=== PATIENT | male | born 1995 | race African-American/Black ===

== ENCOUNTER 2018-03-08 11:53 | Emergency (ER) | payer OTHER ==
[2018-03-08] MEDS ORDERED: IBUPROFEN 800 MG TABLET PO ONE (12:18)
--- NOTE | 2018-03-08 12:19 | ER Document Report ---
ED Hand/Wrist Injury - General Chief Complaint: Hand Injury Stated Complaint: HAND INJURY Time Seen by Provider: 03/08/18 12:10 Mode of Arrival: Ambulatory Information source: Patient Notes: 22-year-old male presents to ED for complaint of pain to his right hand and ring finger after he was hit by a basketball 2 days ago and the pain is continued with swelling. - HPI Injury to: Hand - Right Onset: Other - 2 days ago Where: Outdoors Timing: Still present Quality of pain: Achy, Pressure Severity: Moderate Pain Level: 3 Context: Other - Hit hand with basketball 2 days ago pain and swelling to the hand - Related Data Allergies/Adverse Reactions: No Known Allergies Allergy (Unverified 10/30/11 10:06) Past Medical History - General Information source: Patient - Social History Smoking Status: Never Smoker Cigarette use (# per day): No Chew tobacco use (# tins/day): No Smoking Education Provided: No Frequency of alcohol use: None Drug Abuse: None Lives with: Family Family History: Reviewed & Not Pertinent Patient has suicidal ideation: No Patient has homicidal ideation: No - Past Medical History Cardiac Medical History: Reports: None Pulmonary Medical History: Reports: Hx Asthma EENT Medical History: Reports: None Neurological Medical History: Reports: None Endocrine Medical History: Reports: None Renal/ Medical History: Reports: None Malignancy Medical History: Reports None GI Medical History: Reports: None Musculoskeltal Medical History: Reports Hx Musculoskeletal Trauma Skin Medical History: Reports None Psychiatric Medical History: Reports: None Traumatic Medical History: Reports: Hx Fractures - 03/08/2018 fourth metacarpal right Infectious Medical History: Reports: None Past Surgical History: Reports: Hx Adenoidectomy, Hx Tonsillectomy - Immunizations Immunizations up to date: Yes Review of Systems - Review of Systems Constitutional: No symptoms reported EENT: No symptoms reported Cardiovascular: No symptoms reported Respiratory: No symptoms reported Gastrointestinal: No symptoms reported Genitourinary: No symptoms reported Male Genitourinary: No symptoms reported Musculoskeletal: Other - Right hand pain and swelling Skin: No symptoms reported Hematologic/Lymphatic: No symptoms reported Neurological/Psychological: No symptoms reported -: Yes All other systems reviewed and negative Physical Exam - Vital signs Vitals: Temp Pulse Resp BP Pulse Ox 98.2 F 59 L 18 125/78 95 03/08/18 12:00 03/08/18 12:00 03/08/18 12:00 03/08/18 12:00 03/08/18 12:00 Interpretation: Normal - General General appearance: Appears well, Alert - HEENT Head: Normocephalic, Atraumatic Eyes: Normal Pupils: PERRL - Respiratory Respiratory status: No respiratory distress Chest status: Nontender Breath sounds: Normal Chest palpation: Normal - Cardiovascular Rhythm: Regular Heart sounds: Normal auscultation Murmur: No - Abdominal Inspection: Normal Distension: No distension Bowel sounds: Normal Tenderness: Nontender Organomegaly: No organomegaly - Back Back: Normal, Nontender - Extremities General upper extremity: Normal color, Normal temperature General lower extremity: Normal inspection, Nontender, Normal color, Normal ROM , Normal temperature, Normal weight bearing. No: Yolette's sign Wrist: No: Limited ROM - Due to pain Hand: Tender, Ecchymosis, No evidence of human bite, No evidence of FB, Swelling. No: Abrasion, Deformity, Dislocation, Instability, Laceration, Nail injury, Tendon deficit - Neurological Neuro grossly intact: Yes Cognition: Normal Orientation: AAOx4 Serjio Coma Scale Eye Opening: Spontaneous [place] Coma Scale Verbal: Oriented [place] Coma Scale Motor: Obeys Commands [place] Coma Scale Total: 15 Speech: Normal Motor strength normal: LUE, RUE, LLE, RLE Sensory: Normal - Psychological Associated symptoms: Normal affect, Normal mood - Skin Skin Temperature: Warm Skin Moisture: Dry Skin Color: Normal Course - Re-evaluation Re-evalutation: 03/08/18 13:39 X-ray results discussed with patient and written report of x-ray given to patient to follow-up with orthopedics. Patient was placed in a boxer splint. Patient was instructed to elevate ice and to keep the splint on until he follows up with orthopedics. Patient was prescribed a small prescription of [place]. - Vital Signs Vital signs: Temp Pulse Resp BP Pulse Ox 98.5 F 57 L 18 130/84 H 96 03/08/18 14:08 03/08/18 14:08 03/08/18 14:08 03/08/18 14:08 03/08/18 14:08 - Diagnostic Test Radiology reviewed: Image reviewed, Reports reviewed Procedures - Immobilization Right Hand Time completed: 14:05 Immobilizer type: Sling, Other - Boxer splint Performed by: PCT Post-Proc Neuro Vasc Exam: Normal Alignment checked and good: Yes Discharge - Discharge Clinical Impression: 4th metacarpal extra articular fracture spira HTN (hypertension) Qualifiers: Hypertension type: unspecified Qualified Code(s): I10 - Essential (primary) hypertension Condition: Stable Disposition: HOME, SELF-CARE Additional Instructions: Fractured Metacarpal You have broken a metacarpal bone in the hand. The fracture is usually caused by hitting the hand against a hard surface, but can also be caused by jamming a finger. At first the injury should be rested, elevated, and ice packed. The usual treatment is splinting for four to six weeks. For some patients, a cast is preferable. The physician will advise you. It's important to avoid any twisting or jamming of the fingers while the fracture is healing. Force on the fingers can make the fracture move. Usually , one or two fingers are included in the splint or cast. Sometimes fingers are taped instead -- in this case, extra caution to prevent a twisting of the fingers is necessary. Call the doctor or come back if swelling or pain become severe, if numbness develops, or if you suspect you may have disturbed the fracture. SPLINT PRECAUTIONS: A splint has been placed. This will protect the area while healing begins. Your problem does NOT normally require a cast. It MUST, however, be held still! Keep the splint on ALL THE TIME until instructed to remove it by the doctor. As you begin to use the area, be careful. You shouldn't do anything which causes discomfort -- you may disturb the injury even with the splint in place. After the initial period of rest and elevation, if splint does not prevent pain when you move, come back. You may require placement of a different splint , or a cast. If there is unexpected severe pain, or numbness, discoloration, or swelling beyond the splint, you should return at once. If you feel that the splint has broken or become loose, come back. Sling to be Used You are to use a sling. This is to rest the area, and to prevent it from hanging downward. Use this sling for at least 48 hours (or longer if so instructed by the doctor). Some types of splints will break if not supported by the sling, so the sling must be used as long as the splint. Ice can be placed inside the sling over the injured area. Once you remove the sling, you should not encounter pain when you use the arm and hand. If you do feel pain beneath the cast or splint, you must continue use of the sling. ICE & ELEVATION: Apply ice packs frequently against the painful area. Many different schedules are recommended, such as "20 minutes on, 20 minutes off" or "one hour ice, two hours rest." If you need to work, you may need to go longer between ice treatments. You should plan to have the area ice packed AT LEAST one- fourth of the time. The ice should be applied over the wrap, tape, or splint, or over a layer of cloth -- not directly against the skin. Some ice bags have a built-in cloth and can be put directly on the skin. Your injured part should be elevated as much as possible over the next 48 hours. Try to keep the injury above the level of the heart. Avoid use of the injured area. Elevation and rest will decrease the swelling. USE OF [id number] IBUPROFEN: Ibuprofen (Advil, Nuprin, Medipren, Motrin IB) is a medication for fever and pain control. In addition, it has anti- inflammatory effects which may be beneficial, especially in the treatment of injuries. It's best to take ibuprofen with food. Persons with ulcer disease or allergy to aspirin should notify their physician of this before taking ibuprofen. Ibuprofen can be given every four to six hours, for a total of four doses daily. Age Pain or fever dose Antiinflammatory dose 6-8 yr 200 mg (1 tab) 200 mg (1 tab) 9-11 yr 200 mg (1 tab) 200-400 mg (1-2 tab) 11-14 yr 200-400 mg (1-2 tab) 400 mg (2 tab) 15-adult 400 mg (2 tab) 600 mg (3 tab) ORAL NARCOTIC MEDICATION: You have been given a prescription for pain control. This medication is a narcotic. It's best taken with food, as nausea can result if taken on an empty stomach. Don't operate machinery or drive within six hours of taking this medication. Do not combine this medicine with alcohol, or with any medication which can cause sedation (such as cold tablets or sleeping pills) unless you get permission from the physician. Narcotics tend to cause constipation. If possible, drink plenty of fluids and eat a diet high in fiber and fruits. Please be aware that prescription narcotics also have the potential for abuse. People become addicted to these medications because of the general sense of wellbeing that they induce. This feeling along with a significant reduction in tension, anxiety, and aggression provides a stimulating seductive quality to these drugs. Once your pain is under control, we encourage you to discard your unused narcotics. FOLLOW-UP CARE: If you have been referred to a physician for follow-up care, call the physician s office for an appointment as you were instructed or within the next two days. If you experience worsening or a significant change in your symptoms, notify the physician immediately or return to the Emergency Department at any time for re-evaluation. Prescriptions: Hydrocodone/Acetaminophen [[place] 5-325 mg Tablet] 1 tab PO Q6HP PRN #14 tablet PRN Reason: Forms: Return to Work, Elevated Blood Pressure Referrals: EDITA BENITES MD [ACTIVE STAFF] - Follow up as needed
--- NOTE | 2018-03-08 13:18 | RADIOLOGY REPORT (SQ) ---
EXAM DESCRIPTION: HAND RIGHT 3 VIEWS COMPLETED DATE/TIME: 03/08/2018 12:38 pm REASON FOR STUDY: injured hit by ball COMPARISON: None. EXAM PARAMETERS: NUMBER OF VIEWS: Three views. TECHNIQUE: AP, lateral and oblique radiographic images acquired of the right hand. LIMITATIONS: None. FINDINGS: MINERALIZATION: Normal. BONES: Acute spiral nondisplaced nonangulated extra-articular fracture mid shaft right 4th metacarpal . JOINTS: No effusions. SOFT TISSUES: Dorsal hand soft tissue swelling. No foreign body. OTHER: No other significant finding. IMPRESSION: Acute spiral nondisplaced nonangulated extra-articular fracture mid shaft right 4th meta carpal TECHNICAL DOCUMENTATION: JOB ID: [id number] [employer]- All Rights Reserved Reading location - IP/workstation name: [email or web address]
[2018-03-08 14:08] VITALS: BP 130/84
== END 2018-03-08 14:08 | disposition home or self-care (01) ==
LOC: ER 11:53
DX: S62.354A Nondisplaced fracture of shaft of fourth metacarpal bone, right hand, initial encounter for closed fracture (principal); M79.641 Pain in right hand; M79.644 Pain in right finger(s); W21.05XA Struck by basketball, initial encounter; J45.909 Unspecified asthma, uncomplicated; I10 Essential (primary) hypertension
CPT/HCPCS: 99283

== ENCOUNTER 2018-08-31 12:23 | Emergency (ER) | payer SELFPAY ==
[2018-08-31] MEDS ORDERED: ONDANSETRON 4 MG TAB.RAPDIS PO ONE (13:24)
[2018-08-31] MEDS ORDERED: LANSOPRAZOLE 30 MG TAB.RAP.DR PO ONE (13:24)
[2018-08-31 14:12] LABS: HEMATOCRIT 47.3 % (37.9-51.0); HEMOGLOBIN 16.4 g/dL (13.5-17.0); MEAN CORPUSCULAR HEMOGLOBIN 28.8 pg (27.0-33.4); MEAN CORPUSCULAR HGB CONC 34.5 g/dL (32.0-36.0); MEAN CORPUSCULAR VOLUME 83 fl (80-97); PLATELET COUNT 345 10^3/uL (150-450); RED BLOOD COUNT 5.68 10^6/uL (4.35-5.55); RED CELL DISTRIBUTION WIDTH 13.1 % (11.5-14.0); WHITE BLOOD COUNT 5.1 10^3/uL (4.0-10.5)
[2018-08-31 14:32] LABS: BLOOD UREA NITROGEN 14 mg/dL (7-20); CALCIUM 10.3 mg/dL (8.4-10.2); GLUCOSE 113 mg/dL (75-110)
[2018-08-31 14:33] LABS: ALANINE AMINOTRANSFERASE 50 U/L (21-72); ALBUMIN 5.2 g/dL (3.5-5.0); ALKALINE PHOSPHATASE 61 U/L (38-126); ANION GAP 16 (5-19); ASPARTATE AMINO TRANSFERASE 24 U/L (17-59); BILIRUBIN,TOTAL 1.5 mg/dL (0.2-1.3); CARBON DIOXIDE 28 mmol/L (22-30); CHLORIDE 100 mmol/L (98-107); LIPASE 45.1 U/L (23-300); POTASSIUM 4.8 mmol/L (3.6-5.0); SODIUM 143.9 mmol/L (137-145); TOTAL PROTEIN 8.5 g/dL (6.3-8.2)
--- NOTE | 2018-08-31 14:49 | ER Document Report ---
ED General - General Chief Complaint: Nausea/Vomiting Stated Complaint: VOMITING Time Seen by Provider: 08/31/18 13:18 - HPI Patient complains to provider of: Nausea vomiting Notes: Patient coming in for nausea vomiting slight diarrhea. Patient states was drinking vodka states only 2 shots last night woke up this morning following up of black liquid material. Patient concerned that this was blood. Patient otherwise states some epigastric abdominal pain. Denies any fevers chills denies any sick contacts. Patient states only drinks intermittently on the weekends. No other past medical history. Patient resting company no signs of obvious distress - Related Data Allergies/Adverse Reactions: No Known Allergies Allergy (Unverified 10/30/11 10:06) Past Medical History - Social History Smoking Status: Current Some Day Smoker Frequency of alcohol use: Social Drug Abuse: Marijuana Family History: Reviewed & Not Pertinent Patient has suicidal ideation: No Patient has homicidal ideation: No Pulmonary Medical History: Reports: Hx Asthma Renal/ Medical History: Denies: Hx Peritoneal Dialysis Musculoskeletal Medical History: Reports Hx Musculoskeletal Trauma Traumatic Medical History: Reports: Hx Fractures - 03/08/2018 fourth metacarpal right Past Surgical History: Reports: Hx Adenoidectomy, Hx Tonsillectomy - Immunizations Immunizations up to date: Yes Review of Systems - Review of Systems Constitutional: No symptoms reported EENT: No symptoms reported Cardiovascular: No symptoms reported Respiratory: No symptoms reported Gastrointestinal: Diarrhea, Nausea, Vomiting Genitourinary: No symptoms reported Male Genitourinary: No symptoms reported Musculoskeletal: No symptoms reported Skin: No symptoms reported Hematologic/Lymphatic: No symptoms reported Neurological/Psychological: No symptoms reported -: Yes All other systems reviewed and negative Physical Exam - Vital signs Vitals: Temp Pulse Resp BP Pulse Ox 97.8 F 75 16 127/78 H 96 08/31/18 12:24 08/31/18 12:24 08/31/18 12:24 08/31/18 12:24 08/31/18 12:24 Interpretation: Normal - General General appearance: Appears well, Alert - HEENT Head: Normocephalic, Atraumatic Eyes: Normal Pupils: PERRL - Respiratory Respiratory status: No respiratory distress Chest status: Nontender Breath sounds: Normal Chest palpation: Normal - Cardiovascular Rhythm: Regular Heart sounds: Normal auscultation Murmur: No - Abdominal Inspection: Normal Distension: No distension Bowel sounds: Normal Tenderness: Nontender Organomegaly: No organomegaly - Back Back: Normal, Nontender - Extremities General upper extremity: Normal inspection, Nontender, Normal color, Normal ROM , Normal temperature General lower extremity: Normal inspection, Nontender, Normal color, Normal ROM , Normal temperature, Normal weight bearing. No: Yolette's sign - Neurological Neuro grossly intact: Yes Cognition: Normal Orientation: AAOx4 Serjio Coma Scale Eye Opening: Spontaneous [place] Coma Scale Verbal: Oriented [place] Coma Scale Motor: Obeys Commands [place] Coma Scale Total: 15 Speech: Normal Motor strength normal: LUE, RUE, LLE, RLE Sensory: Normal - Psychological Associated symptoms: Normal affect, Normal mood - Skin Skin Temperature: Warm Skin Moisture: Dry Skin Color: Normal Course - Re-evaluation Re-evalutation: 08/31/18 14:44 The patient presents with abdominal pain without signs of peritonitis or other life-threatening or serious etiology. The patient appears stable for discharge and has been instructed to return immediately if the symptoms worsen in any way , or in 8-12hr if not improved for re-evaluation. The patient has been instructed to return if the symptoms worsen or change in any way. Patient was educated about abstaining from alcohol use over the next few days we will send patient home with a prescription for omeprazole also will give the patient prescription for Zofran and Phenergan. Patient states understanding will be discharged home. - Vital Signs Vital signs: Temp Pulse Resp BP Pulse Ox 97.8 F 75 16 127/78 H 96 08/31/18 12:24 08/31/18 12:24 08/31/18 12:24 08/31/18 12:24 08/31/18 12:24 - Laboratory Result Diagrams: 08/31/18 13:39 08/31/18 13:39 Laboratory results interpreted by me: 08/31/18 08/31/18 13:39 13:39 RBC 5.68 H Glucose 113 H Calcium 10.3 H Total Bilirubin 1.5 H Total Protein 8.5 H Albumin 5.2 H Discharge - Discharge Clinical Impression: Nausea & vomiting Qualifiers: Vomiting type: unspecified Vomiting Intractability: unspecified Qualified Code( s): R11.2 - Nausea with vomiting, unspecified Condition: Good Disposition: HOME, SELF-CARE Instructions: Vomiting ([facility]), Gastroenteritis (adult) ([facility]) Additional Instructions: Please stick to a bland diet for the next 12-24 hours. Avoid any foods that are fried greasy oily. Return to the ER symptoms worsen follow-up with your primary care physician. Recommend to abstain from any alcohol use for the next 2 weeks. Prescriptions: Omeprazole 20 mg PO DAILY #30 capsule. Ondansetron HCl [Zofran 4 mg Tablet] 1 - 2 tab PO Q6 #30 tablet Promethazine HCl [Phenergan 25 mg Tablet] 25 mg PO Q6 #30 tablet Forms: Return to Work
[2018-08-31 15:30] VITALS: BP 122/70
== END 2018-08-31 15:00 | disposition home or self-care (01) ==
LOC: ER 12:23
DX: R11.2 Nausea with vomiting, unspecified (principal); R19.7 Diarrhea, unspecified; F17.200 Nicotine dependence, unspecified, uncomplicated; J45.909 Unspecified asthma, uncomplicated
CPT/HCPCS: 99284; 36415; 83690; 85027; 80053; S0119

== ENCOUNTER 2020-06-09 15:00 | Emergency (ER) | payer SELFPAY ==
--- NOTE | 2020-06-09 16:11 | ER Document Report ---
ED Respiratory Problem - General Chief Complaint: Cough Stated Complaint: COUGH Notes: CHIEF COMPLAINT: Cough for 2 to 3 days HPI: 24-year-old male presenting for cough with chest pain with coughing only for 2 to 3 days. No fever. Occasional shortness of breath. No wheezing. ROS: See HPI - all other systems were reviewed and are otherwise negative Constitutional: no fever Eyes: no drainage, no blurred vision ENT: no runny nose, no sore throat Cardiovascular: Positive chest wall pain Resp: Occasional SOB, + cough GI: no vomiting, no diarrhea, no abdominal pain : no dysuria Integumentary: no rash Allergy: no hives Musculoskeletal: no extremity pain or swelling Neurological: no numbness/tingling, no weakness MEDICATIONS: I agree with the patient medications as charted by the RN. ALLERGIES: I agree with the allergies as charted by the RN. PAST MEDICAL HISTORY/PAST SURGICAL HISTORY: Reviewed and agree as charted by RN. SOCIAL HISTORY: Reviewed and agree as charted by RN. FAMILY HISTORY: No significant familial comorbid conditions directly related to patient complaint EXAM: Reviewed vital signs as charted by RN. CONSTITUTIONAL: Alert and oriented and responds appropriately to questions. Well-appearing; well-nourished HEAD: Normocephalic; atraumatic EYES: PERRL; Conjunctivae clear, sclerae non-icteric ENT: normal nose; no rhinorrhea; moist mucous membranes; pharynx without lesions noted, no uvula edema or deviation, no tonsillar hypertrophy, phonation normal NECK: Supple without meningismus; non-tender; no cervical lymphadenopathy, no masses CARD: RRR; no murmurs, no clicks, no rubs, no gallops; symmetric distal pulses RESP: Normal chest excursion without splinting or tachypnea; breath sounds clear and equal bilaterally; no wheezes, no rhonchi, no rales, pulse oximetry 98% on room air not hypoxic. Mild tenderness on palpation of the left chest wall ABD/GI: Normal bowel sounds; non-distended; soft, non-tender, no rebound, no guarding; no palpable organomegaly or masses. BACK: The back appears normal and is non-tender to palpation, there is no CVA tenderness EXT: Normal ROM in all joints; non-tender to palpation; no cyanosis, no effusions, no edema SKIN: Normal color for age and race; warm; dry; good turgor; no acute lesions noted NEURO: Moves all extremities equally; Motor and sensory function intact PSYCH: The patient's mood and manner are appropriate. Grooming and personal hygiene are appropriate. MDM: 24-year-old male cough occasional shortness of breath without wheezing for 2 to 3 days. Chest x-ray on my review does not show evidence of infiltrate or pneumonia. Patient will be considered a person under investigation for COVID-19 at this time self quarantine at home I will write the patient for Mucinex and an albuterol inhaler return for worsening symptoms, pending test results - Related Data Allergies/Adverse Reactions: No Known Allergies Allergy (Unverified 10/30/11 10:06) Past Medical History - Social History Smoking Status: Current Every Day Smoker Family History: Reviewed & Not Pertinent Pulmonary Medical History: Reports: Hx Asthma Renal/ Medical History: Denies: Hx Peritoneal Dialysis Musculoskeletal Medical History: Reports Hx Musculoskeletal Trauma Traumatic Medical History: Reports: Hx Fractures - 03/08/2018 fourth metacarpal right Past Surgical History: Reports: Hx Adenoidectomy, Hx Tonsillectomy - Immunizations Immunizations up to date: Yes Physical Exam - Vital signs Vitals: Temp Pulse Resp BP Pulse Ox 98.0 F 79 17 147/78 H 98 06/09/20 15:13 06/09/20 15:13 06/09/20 15:13 06/09/20 15:13 06/09/20 15:13 Course - Vital Signs Vital signs: Temp Pulse Resp BP Pulse Ox 98.0 F 79 17 147/78 H 98 06/09/20 15:13 06/09/20 15:13 06/09/20 15:13 06/09/20 15:13 06/09/20 15:13 Discharge - Discharge Clinical Impression: Person under investigation for COVID-19 Upper respiratory infection Qualifiers: URI type: unspecified URI Qualified Code(s): J06.9 - Acute upper respiratory infection, unspecified Condition: Stable Disposition: HOME, SELF-CARE Instructions: COVID-19 Guidance for Persons Under Investigation Additional Instructions: Use the albuterol inhaler 2 puffs every 4 hours as needed for shortness of breath or cough. Take the Mucinex to help with cough. You are considered a person under investigation for COVID-19 at this time, self quarantine at home pending her test results which normally take 2 to 5 days. You should hear from someone at the hospital about your test results Prescriptions: Guaifenesin/Dextromethorphan [Mucinex Dm ER 600-30 mg Tablet] 1 each PO BID #20 tab.er.12h Albuterol Sulfate [Proair HFA Inhalation Aerosol 8.5 gm MDI] 2 puff IH Q4H PRN #1 mdi PRN Reason: Forms: Return to Work Referrals: DANA SIMMS MD [COMMUNITY BASED STAFF] - Follow up as needed
--- NOTE | 2020-06-09 16:20 | RADIOLOGY REPORT (SQ) ---
EXAM DESCRIPTION: CHEST SINGLE VIEW IMAGES COMPLETED DATE/TIME: 06/09/2020 3:48 pm REASON FOR STUDY: cough COMPARISON: None. NUMBER OF VIEWS: One view. TECHNIQUE: Single frontal radiographic view of the chest acquired. LIMITATIONS: None. FINDINGS: LUNGS AND PLEURA: No opacities, masses or pneumothorax. No pleural effusion. MEDIASTINUM AND HILAR STRUCTURES: No masses. Contour normal. HEART AND VASCULAR STRUCTURES: Heart normal in size. Normal vasculature. BONES: No acute findings. HARDWARE: None in the chest. OTHER: No other significant finding. IMPRESSION: NO SIGNIFICANT RADIOGRAPHIC FINDING IN THE CHEST. TECHNICAL DOCUMENTATION: JOB ID: [id number] 2010 [employer]- All Rights Reserved Reading location - IP/workstation name: [email or web address]
[2020-06-09 17:05] VITALS: BP 131/75
== END 2020-06-09 17:06 | disposition home or self-care (01) ==
LOC: ER 15:00
DX: J06.9 Acute upper respiratory infection, unspecified (principal); R05 Cough; R07.9 Chest pain, unspecified; R06.02 Shortness of breath; F17.200 Nicotine dependence, unspecified, uncomplicated; J45.909 Unspecified asthma, uncomplicated; Z20.828 Contact with and (suspected) exposure to other viral communicable diseases
CPT/HCPCS: 99284; 87635; 71045; C9803